=== PATIENT | male | born 1945 | race Caucasian/White ===

== ENCOUNTER 2016-11-20 11:31 | Emergency (ER) | payer OTHER ==
[2016-11-20 11:41] VITALS: TEMP 97.7
--- NOTE | 2016-11-20 12:31 | EDPHY ---
H & P Stated Complaint: hx diverticulitis/lower abd pain Time Seen by Provider: 11/20/16 12:07 HPI/ROS: CHIEF COMPLAINT: left lower quadrant abdominal pain HISTORY OF PRESENT ILLNESS: 71-year-old male presents emergency department complaining of left lower quadrant abdominal pain that started yesterday afternoon. Patient reports no nausea or vomiting, no fevers. He states he was diagnosed with diverticulitis [address] scan and has not had any problems since. This feels very similar. Patient reports he had a normal bowel movement yesterday. He reports he has been eating very little as he is worried it will cause more pain. He does feel hungry. Patient denies urinary frequency, urgency, dysuria. REVIEW OF SYSTEMS: A comprehensive 10 point review of systems is otherwise negative aside from elements mentioned in the history of present illness. Source: Patient Exam Limitations: No limitations - Personal History Current Tetanus/Diphtheria Vaccine: Yes - Medical/Surgical History Hx Asthma: No Hx Chronic Respiratory Disease: No Hx Diabetes: No Hx Cardiac Disease: No Hx Renal Disease: No Hx Cirrhosis: No Hx Alcoholism: No Hx HIV/AIDS: No Hx Splenectomy or Spleen Trauma: No Other PMH: appy/diverticulitis - Social History Smoking Status: Never smoked - Physical Exam Exam: Physical Exam Gen: Alert and Oriented, NAD HEENT: PERRL, moist mucous membranes NECK: no meningismus CV: regular rate and regular rhythm PULM: CTAB, no wheezes ABDOMEN: Soft, left lower quadrant tenderness to palpation with guarding, mild periumbilical tenderness, no right lower quadrant tenderness, no right upper quadrant tenderness. BACK: No CVA tenderness NEURO: Neurologically grossly intact EXTREMITIES: normal appearing SKIN: no rash or break in skin on exposed skin PSYCH: answers questions appropriately. Constitutional: Initial Vital Signs Temperature (C) 36.5 C 11/20/16 11:38 Heart Rate 62 11/20/16 11:38 Respiratory Rate 16 11/20/16 11:38 Blood Pressure 129/84 H 11/20/16 11:38 O2 Sat (%) 95 11/20/16 11:38 O2 Delivery Mode Room Air Allergies/Adverse Reactions: Inownor-Ixd-Upo Reductase Inhibitor Allergy (Verified 11/20/16 11:37) SODIUM BLOCKERS Allergy (Uncoded 07/10/13 23:34) Home Medications: Medication Instructions Recorded Clonazepam 0 mg PO 07/10/13 Diclofenac Sodium 0 mg PO 07/10/13 Lisinopril [Zestril 20 mg (RX)] 0 mg PO DAILY 07/10/13 Niacin ER [Niaspan 1000 mg (RX)] 1,500 mg PO HS 07/10/13 Metronidazole 500 mg PO TID 10 Days 11/20/16 levOFLOXACIN [levAQUIN (*)] 750 mg PO DAILY #10 tab 11/20/16 traMADol 11/20/16 Medical Decision Making - Diagnostics Imaging: CT abdomen pelvis Impression: 1. Acute distal descending colon diverticulitis, with a mild associated localized jejunal ileus. There is no evidence of a colonic abscess despite rather extensive inflammatory changes of the adjacent mesenteric fat. 2. Possible cholelithiasis versus gallbladder sludge; sonography would be more definitive. 3. Mild cardiomegaly with coronary artery atherosclerotic calcifications. 4. Moderate hiatal hernia. 5. Moderate prostatomegaly. Results were discussed with Bunny White, Nurse Practitioner. ED Course/Re-evaluation: IV established, CBC, chemistry panel, urine dip ordered along with CT abdomen pelvis with IV contrast. CBC shows a mildly elevated white blood cell count at 11,000 with a left shift, chemistry panel is normal, urinalysis is normal. CT shows a descending colon diverticulitis. Patient would like to be discharged home, I am comfortable with this plan, he is afebrile, has no nausea or vomiting, no evidence of abscess or perforation on CT. Patient will be discharged with a prescription for Levaquin and Flagyl, this is what was used to treat his diverticulitis in 2012. Patient agrees to follow up at the [facility] this week. He is given strict return precautions for nausea, vomiting, fevers, worsening symptoms. He does not want a prescription for any pain medication. I have recommended clear liquids for the next 2-3 days and advancing his diet slowly as tolerated. Patient is comfortable with this plan. I reviewed this with Dr. Grimes, my supervising physician and she agrees with the plan. Differential Diagnosis: Diagnosis considered but not limited to diverticulitis, small-bowel obstruction , perforation, abscess - Data Points Laboratory Results: Laboratory Results 11/20/16 12:20 11/20/16 12:20 11/20/16 12:20 WBC 11.84 H 10^3/uL (3.80-9.50) RBC 5.19 10^6/uL (4.40-6.38) Hgb 17.1 g/dL (13.7-17.5) Hct 48.7 % (40.0-51.0) MCV 93.8 fL (81.5-99.8) MCH 32.9 pg (27.9-34.1) MCHC 35.1 g/dL (32.4-36.7) RDW 12.7 % (11.5-15.2) Plt Count 201 10^3/uL (150-400) MPV 10.5 fL (8.7-11.7) Neut % (Auto) 76.8 H % (39.3-74.2) Lymph % (Auto) 11.1 L % (15.0-45.0) Edmunds % (Auto) 9.8 % (4.5-13.0) Eos % (Auto) 1.6 % (0.6-7.6) Baso % (Auto) 0.3 % (0.3-1.7) Nucleat RBC Rel Count 0.0 % (0.0-0.2) Absolute Neuts (auto) 9.09 H 10^3/uL (1.70-6.50) Absolute Lymphs (auto) 1.31 10^3/uL (1.00-3.00) Absolute Monos (auto) 1.16 H 10^3/uL (0.30-0.80) Absolute Eos (auto) 0.19 10^3/uL (0.03-0.40) Absolute Basos (auto) 0.04 10^3/uL (0.02-0.10) Absolute Nucleated RBC 0.00 10^3/uL (0-0.01) Immature Gran % 0.4 % (0.0-1.1) Immature Gran # 0.05 10^3/uL (0.00-0.10) Sodium 144 mEq/L (134-144) Potassium 4.2 mEq/L (3.5-5.2) Chloride 103 mEq/L (97-110) Carbon Dioxide 28 mEq/l (22-31) Anion Gap 13 mEq/L (8-16) BUN 19 mg/dL (7-23) Creatinine 0.9 mg/dL (0.7-1.3) Estimated GFR > 60 Glucose 85 mg/dL (70-100) Calcium 9.6 mg/dL (8.5-10.4) Departure - Departure Disposition: Home, Routine, Self-Care Clinical Impression: Diverticulitis Qualifiers: Qualifier Code: (K57.32) Diverticulitis of large intestine without perforation or abscess without bleeding Condition: Good Instructions: Diverticulitis (ED), Diverticulitis Diet (ED) Additional Instructions: Take your antibiotics as prescribed. Follow up with the next week at the [facility] for re-evaluation, return the emergency department for worsening symptoms, fevers, vomiting, pain that is not improving. Clear liquid diet for the next 2-3 days. Tylenol and/or ibuprofen [id number] as needed for pain. [facility] - As per Instructions Prescriptions: Metronidazole 500 mg PO TID 10 Days levOFLOXACIN [levAQUIN (*)] 750 mg PO DAILY #10 tab
[2016-11-20 12:34] LABS: % IMMATURE GRANULYOCYTES 0.4 % (0.0-1.1); ABSOLUTE IMMATURE GRANULOCYTES 0.05 10^3/uL (0.00-0.10); ADD DIFF? NO; ADD MORPH? NO; ADD SCAN? NO; ATYPICAL LYMPHOCYTE FLAG 0 (0-99); FRAGMENT RBC FLAG 0 (0-99); HEMATOCRIT 48.7 % (40.0-51.0); HEMOGLOBIN 17.1 g/dL (13.7-17.5); LEFT SHIFT FLG 0 (0-99); LIPEMIA HEMOLYSIS FLAG 90 (0-99); MEAN CELL HEMOGLOBIN 32.9 pg (27.9-34.1); MEAN CELL HEMOGLOBIN CONCENTR. 35.1 g/dL (32.4-36.7); MEAN CELL VOLUME 93.8 fL (81.5-99.8); MEAN PLATELET VOLUME 10.5 fL (8.7-11.7); PLATELET CLUMPS FLAG 0 (0-99); PLATELET COUNT 201 10^3/uL (150-400); RED BLOOD CELL COUNT 5.19 10^6/uL (4.40-6.38); RED CELL DISTRIBUTION WIDTH 12.7 % (11.5-15.2)
[2016-11-20 12:57] LABS: ANION GAP 13 mEq/L (8-16); CALCIUM 9.6 mg/dL (8.5-10.4); CARBON DIOXIDE 28 mEq/l (22-31); CHLORIDE 103 mEq/L (97-110); CREATININE 0.9 mg/dL (0.7-1.3); GLOMERULAR FILTRATION RATE > 60; GLUCOSE 85 mg/dL (70-100); POTASSIUM 4.2 mEq/L (3.5-5.2); SODIUM 144 mEq/L (134-144)
[2016-11-20] MEDS ORDERED: IOPAMIDOL (ISOVUE-300) 100 ML BTL IV ONE (12:57)
--- NOTE | 2016-11-20 13:51 | CT ---
Contrast Enhanced CT Scan of the Abdomen and Pelvis Clinical History: 71-year-old male presenting to the ED complaining of left lower quadrant pain for 24 hours. Rule out diverticulitis. The patient's surgical history is notable for a prior appendectomy . Technique: Following oral contrast, and the uncomplicated intravenous administration of 100 mL of Iso antelmo-300, a multidetector helical CT scan was obtained from the lung bases inferiorly through the prox imal femora, with images reformatted at 5.00 and 1.50 mm increments, and reviewed at a variety of win vanesa and level settings. Parasagittal and paracoronal reconstructed images are reviewed on the worksta tion. The DFOV is 40.0 cm. Dose reduction techniques were utilized. Comparison Study: Contrast-enhanced CT scan of the abdomen and pelvis, dated July 11, 2013. Findings: Contrast-Enhanced CT Scan of the Abdomen: There is some mild perihilar bronchial wall thickening at t he lung bases where there are also some minor posterior dependent changes. There is no pleural effusi on. The visualized cardiac chambers and pericardium are unremarkable. There is atherosclerotic calcif ication of the RCA and PTCA vessels. Again, there is a moderate-sized hiatal hernia present. The live r, spleen, bile ducts, pancreas, adrenal glands, and the kidneys are normal in appearance. There is s ome volume averaging of fat near the falciform ligament on series 4, image 51. There is possible slud ge versus tiny stones associated with the gallbladder fundus and neck. This could be more definitivel y assessed with ultrasound, if clinically directed. There is no pericholecystic fluid or gallbladder wall thickening. There are some small periportal and precaval lymph nodes seen on series 4 images 65 through 78, however these are reassuringly unchanged from 2013. The aorta tapers normally, and the IV C is normal in caliber. There is no ascites or free air. There is moderate centripetal obesity. There is a localized ileus with fluid-filled loops of jejunum adjacent to inflammation involving the dista l descending colon (within the setting of several diverticula, consistent with acute diverticulitis). These features are identified on series 4 images 139-197. There is no abscess. Contrast-Enhanced CT Scan of the Pelvis: Numerous sigmoid colon diverticula are observed. The urinary bladder is moderately distended. The prostate gland is moderately enlarged, measuring 5.9 x 4.4 x 4. 7 cm There are no masses, free fluid, or free air. Bilateral fat-containing inguinal hernias are seen . Skeletal System: There is advanced degenerative disk disease at L1-L2, L4-L5, and L5-S1. There is a d extrorotatory lumbar scoliosis. Impression: 1. Acute distal descending colon diverticulitis, with a mild associated localized jejunal ileus. Ther e is no evidence of a colonic abscess despite rather extensive inflammatory changes of the adjacent m esenteric fat. 2. Possible cholelithiasis versus gallbladder sludge; sonography would be more definitive. 3. Mild cardiomegaly with coronary artery atherosclerotic calcifications. 4. Moderate hiatal hernia. 5. Moderate prostatomegaly. Results were discussed with Bunny White, Nurse Practitioner. A test result has been communicated to a licensed care provider and documented in the [employer] Critical Result system on 11/20/2016 13:48, Message ID [id number].
[2016-11-20 14:12] VITALS: PULSE 66; O2SAT 93
[2016-11-20 14:59] VITALS: BP 150/92; RESP 16
== END 2016-11-20 14:59 | disposition home or self-care (01) ==
DX: K57.32 Diverticulitis of large intestine without perforation or abscess without bleeding (principal)
CPT/HCPCS: 74177; 99284; Q9967

== ENCOUNTER 2017-12-07 17:49 | Emergency (ER) | payer OTHER ==
[2017-12-07 18:00] VITALS: TEMP 98.4
[2017-12-07] MEDS ORDERED: NS 1,000 ML IV ONE (18:32)
[2017-12-07] MEDS ORDERED: metroNIDAZOLE 500 MG TAB PO ONE (18:33)
[2017-12-07] MEDS ORDERED: CIPROFLOXACIN 500 MG TAB PO ONE (18:33)
--- NOTE | 2017-12-07 18:36 | EDPHY ---
H & P Stated Complaint: l lower quad abd pain/hx of diverticulitis Time Seen by Provider: 12/07/17 18:24 HPI/ROS: CHIEF COMPLAINT: Diverticulitis flare HISTORY OF PRESENT ILLNESS: The patient is a 72-year-old who comes to the emergency department complaining of left lower quadrant pain that began yesterday after he ate crispy choe and blueberries with seeds. He states that this is exactly reminiscent of previous episodes of diverticulitis. He has not had a fever. No nausea vomiting or diarrhea. He was seen here last for the same and treated successfully as an outpatient with Cipro and Flagyl. He was told by the [facility] not to get further CT scans if possible. No urinary symptoms. No bloody stool. No chest pain or shortness of breath. REVIEW OF SYSTEMS: Constitutional: denies: chills, fever, recent illness, recent injury EENTM: denies: blurred vision, double vision, nose congestion Respiratory: denies: cough, shortness of breath Cardiac: denies: chest pain, irregular heart rate, lightheadedness, palpitations Gastrointestinal/Abdominal: See HPI denies: diarrhea, nausea, vomiting, blood streaked stools Genitourinary: denies: dysuria, frequency, hematuria, pain Musculoskeletal: denies: joint pain, muscle pain Skin: denies: lesions, rash, jaundice, bruising Neurological: denies: headache, numbness, paresthesia, tingling, dizziness, weakness Hematologic/Lymphatic: denies: blood clots, easy bleeding, easy bruising Immunologic/allergic: denies: HIV/AIDS, transplant EXAM: GENERAL: Well-appearing, well-nourished and in no acute distress. HEAD: Atraumatic, normocephalic. EYES: Pupils equal round and reactive to light, extraocular movements intact, sclera anicteric, conjunctiva are normal. ENT: TMs normal, nares patent, oropharynx clear without exudates. Moist mucous membranes. NECK: Normal range of motion, supple without lymphadenopathy or JVD. LUNGS: Breath sounds clear to auscultation bilaterally and equal. No wheezes rales or rhonchi. HEART: Regular rate and rhythm without murmurs, rubs or gallops. ABDOMEN: Left lower quadrant tenderness , normoactive bowel sounds. No guarding, no rebound. No masses appreciated. BACK: No CVA tenderness, no spinal tenderness, step-offs or deformities EXTREMITIES: Normal range of motion, no pitting or edema. No clubbing or cyanosis. NEUROLOGICAL: Cranial nerves II through XII grossly intact. Normal speech, normal gait. 5/5 strength, normal movement in all extremities, normal sensation PSYCH: Normal mood, normal affect. SKIN: Warm, dry, normal turgor, no visible rashes or lesions. Source: Patient Exam Limitations: No limitations - Personal History Current Tetanus/Diphtheria Vaccine: Yes - Medical/Surgical History Hx Asthma: No Hx Chronic Respiratory Disease: No Hx Diabetes: No Hx Cardiac Disease: No Hx Renal Disease: No Hx Cirrhosis: No Hx Alcoholism: No Hx HIV/AIDS: No Hx Splenectomy or Spleen Trauma: No Other PMH: appy/diverticulitis, incisional hernia, trigeminal neuralgia - Social History Smoking Status: Never smoked Alcohol Use: Sober Drug Use: None Constitutional: Initial Vital Signs Temperature (C) 36.9 C 12/07/17 17:57 Heart Rate 68 12/07/17 17:57 Respiratory Rate 17 12/07/17 17:57 Blood Pressure 157/90 H 12/07/17 17:57 O2 Sat (%) 94 12/07/17 17:57 O2 Delivery Mode Room Air Allergies/Adverse Reactions: Vfkrsvb-Kqy-Iqv Reductase Inhibitor Allergy (Verified 12/07/17 17:56) SODIUM BLOCKERS Allergy (Uncoded 07/10/13 23:34) Home Medications: Medication Instructions Recorded Clonazepam 0 mg PO 07/10/13 Lisinopril [Zestril 20 mg (RX)] 0 mg PO DAILY 07/10/13 traMADol 11/20/16 Ciprofloxacin [Cipro] 500 mg PO BID #14 tab 12/07/17 metroNIDAZOLE [Flagyl] 500 mg PO BID #20 tab 12/07/17 Medical Decision Making ED Course/Re-evaluation: 7:40 p.m. the patient's white blood cell count is slightly elevated. His abdominal exam remains minimally tender. He has done well with oral antibiotics and is eager to go home. He continues to refuse imaging. I feel that he will likely succeed in the outpatient setting. The I gave him strict return precautions. Differential Diagnosis: Partial list of the Differential diagnosis considered include but were not limited to; diverticulitis, diarrhea and although unlikely based on the history and physical exam, I also considered obstruction, ischemia, aneurysm, stone. I discussed these differential diagnoses and the plan with the patient as well as the usual and expected course. The patient understands that the diagnosis is provisional and that in medicine we are not always correct and that further workup is often warranted. Usual and customary warnings were given. All of the patient's questions were answered. The patient was instructed to return to the emergency department should the symptoms at all worsen or return, otherwise to followup with the physician as we discussed. - Data Points Laboratory Results: Laboratory Results 12/07/17 19:13 12/07/17 19:13 12/07/17 12/07/17 12/07/17 19:13 19:13 19:13 WBC 11.82 10^3/uL H 10^3/uL (3.80-9.50) RBC 5.17 10^6/uL 10^6/uL (4.40-6.38) Hgb 16.9 g/dL g/dL (13.7-17.5) Hct 48.9 % % (40.0-51.0) MCV 94.6 fL fL (81.5-99.8) MCH 32.7 pg pg (27.9-34.1) MCHC 34.6 g/dL g/dL (32.4-36.7) RDW 13.3 % % (11.5-15.2) Plt Count 193 10^3/uL 10^3/uL (150-400) MPV 10.4 fL fL (8.7-11.7) Neut % (Auto) 78.2 % H % (39.3-74.2) Lymph % (Auto) 10.5 % L % (15.0-45.0) Cecil % (Auto) 9.4 % % (4.5-13.0) Eos % (Auto) 1.2 % % (0.6-7.6) Baso % (Auto) 0.4 % % (0.3-1.7) Nucleat RBC Rel Count 0.0 % % (0.0-0.2) Absolute Neuts (auto) 9.25 10^3/uL H 10^3/uL (1.70-6.50) Absolute Lymphs (auto) 1.24 10^3/uL 10^3/uL (1.00-3.00) Absolute Monos (auto) 1.11 10^3/uL H 10^3/uL (0.30-0.80) Absolute Eos (auto) 0.14 10^3/uL 10^3/uL (0.03-0.40) Absolute Basos (auto) 0.05 10^3/uL 10^3/uL (0.02-0.10) Absolute Nucleated RBC 0.00 10^3/uL 10^3/uL (0-0.01) Immature Gran % 0.3 % % (0.0-1.1) Immature Gran # 0.03 10^3/uL 10^3/uL (0.00-0.10) PT 13.3 SEC SEC (12.0-15.0) INR 0.99 (0.83-1.16) APTT 27.4 SEC SEC (23.0-38.0) Sodium 140 mEq/L mEq/L (135-145) Potassium 4.1 mEq/L mEq/L (3.5-5.2) Chloride 100 mEq/L mEq/L (97-110) Carbon Dioxide 26 mEq/l mEq/l (22-31) Anion Gap 14 mEq/L mEq/L (8-16) BUN 20 mg/dL mg/dL (7-23) Creatinine 1.0 mg/dL mg/dL (0.7-1.3) Estimated GFR > 60 Glucose 89 mg/dL mg/dL (70-100) Calcium 10.0 mg/dL mg/dL (8.5-10.4) Total Bilirubin 1.3 mg/dL mg/dL (0.1-1.4) Conjugated Bilirubin 0.2 mg/dL mg/dL (0.0-0.5) Unconjugated Bilirubin 1.1 mg/dL mg/dL (0.0-1.1) AST 29 IU/L IU/L (17-59) ALT 47 IU/L IU/L (21-72) Alkaline Phosphatase 65 IU/L IU/L (38-126) Total Protein 7.7 g/dL g/dL (6.3-8.2) Albumin 4.3 g/dL g/dL (3.5-5.0) Lipase 219 IU/L IU/L (23-300) Medications Given: Discontinued Medications Ciprofloxacin (Cipro) 500 mg PO EDNOW ONE PRN Reason: Protocol Stop: 12/07/17 18:34 Last Admin: 12/07/17 19:13 Dose: 500 mg Sodium Chloride (Ns) 1,000 mls @ 0 mls/hr IV EDNOW ONE; Wide Open PRN Reason: Protocol Stop: 12/07/17 18:33 Last Admin: 12/07/17 19:14 Dose: 1,000 mls Metronidazole (Flagyl) 500 mg PO EDNOW ONE PRN Reason: Protocol Stop: 12/07/17 18:34 Last Admin: 12/07/17 19:13 Dose: 500 mg Departure - Departure Disposition: Home, Routine, Self-Care Clinical Impression: Diverticulitis Condition: Fair Instructions: Diverticulitis (ED) Referrals: [facility] [Other] - As per Instructions ED,PHYSICIAN BABAK [Medical Doctor] - 1 day, if not improved Prescriptions: Ciprofloxacin [Cipro] 500 mg PO BID #14 tab metroNIDAZOLE [Flagyl] 500 mg PO BID #20 tab
[2017-12-07 19:23] LABS: PLATELET COUNT 193 10^3/uL (150-400)
[2017-12-07 19:33] LABS: INR 0.99 (0.83-1.16); PROTIME(PATIENT) 13.3 SEC (12.0-15.0)
[2017-12-07 20:12] VITALS: BP 151/95; PULSE 71; RESP 18; O2SAT 92
== END 2017-12-07 20:14 | disposition home or self-care (01) ==
DX: K57.92 Diverticulitis of intestine, part unspecified, without perforation or abscess without bleeding (principal); E86.9 Volume depletion, unspecified

== ENCOUNTER 2018-01-29 15:43 | Emergency (ER) | payer OTHER ==
--- NOTE | 2018-01-29 16:02 | EDPHY ---
H & P Time Seen by Provider: 01/29/18 15:52 HPI/ROS: CHIEF COMPLAINT: Coughing HISTORY OF PRESENT ILLNESS: Patient presents with cough and nasal congestion which typically happens to him during the spring season. The reason shows up today in the emergency department is he is worried that he swallowed or aspirated a rock or a glass bead. The patient says he typically hikes with a rock or a piece of glass in his mouth because he thinks it is helping him be less thirsty. 2 weeks ago he thinks he might have swallowed or aspirated 1 of them but does not know for sure. Over the last 3 or 4 days started having a cough with some clear phlegm and some nasal congestion and was unsure if it was his usual springtime allergies or if he had aspirated a rock. No change in voice. No fevers or chills. No chest pain. Not short of breath. REVIEW OF SYSTEMS: Eye: no change in vision ENT: no sore throat Cardiac: no chest pain or syncope Pulmonary: HPI Abdomen: no vomiting, diarrhea, abdominal pain Musculoskeletal: Chronic neck pain but no change Skin: no rash Neuro: no headache Constitutional: no fever : no urinary symptoms A comprehensive 10 point review of systems is otherwise negative aside from elements mentioned in the history of present illness. PAST MEDICAL HISTORY: Trigeminal neuralgia, appendectomy, hernia Social history: Primary care at the [place] General Appearance: Alert and conversant, cooperative. Eyes: No scleral icterus. ENT, Mouth: Normal mucous membranes. No angioedema Respiratory: Normal respiratory effort, breath sounds equal, lungs are clear to auscultation. No wheezing. No stridor or drooling. Cardiovascular: Regular rate and rhythm. Gastrointestinal: Abdomen is soft and non tender. Neurological: Alert, face symmetric, normal motor and sensory in extremities. Skin: No urticaria. Musculoskeletal: Normal range of motion of the neck. Psychiatric: Not agitated. Emergency Department course/MDM: Chest x-ray ordered. 1637: Chest x-ray reviewed with Victor M shows right para hiatal hernia mass possibly aneurysm or foreign body, recommend CT chest with contrast. Normal i-STAT creatinine, discussed with patient and consented. 175: CT shows no mass or foreign body per Dr. Zayra Santiago, normal. Results discussed with the patient, stable for discharge. Smoking Status: Never smoked Constitutional: Initial Vital Signs Temperature (C) 36.7 C 01/29/18 15:48 Heart Rate 72 01/29/18 15:48 Respiratory Rate 18 01/29/18 15:48 Blood Pressure 146/96 H 01/29/18 15:48 O2 Sat (%) 94 01/29/18 15:48 O2 Delivery Mode Room Air Allergies/Adverse Reactions: Dpcrdkv-Cyv-Hwu Reductase Inhibitor Allergy (Verified 01/29/18 15:47) SODIUM BLOCKERS Allergy (Uncoded 07/10/13 23:34) Home Medications: Medication Instructions Recorded Clonazepam 0 mg PO 07/10/13 Lisinopril [Zestril 20 mg (RX)] 0 mg PO DAILY 07/10/13 traMADol 11/20/16 Medical Decision Making - Diagnostics Imaging Results: Imaging Impressions Chest X-Ray 01/29/18 15:58 Impression: 1. No pneumonia 2. Small hiatal hernia 3. Possible right paraspinal mass, versus an unusual extension of the hiatal hernia. Recommend CT chest with IV contrast for further evaluation. Results discussed with Dr. Bosch at 4:[address] 01/29/18 17:02 Impression: 1. No foreign body identified. No airways trapping. 2. Hiatal hernia, pushing the esophagus towards the right, which contributes to the shadow seen on x-ray. Findings and recommendations discussed with Dr. Sohail Bosch at 1800 hour, 2017. Final report concurs with initial preliminary interpretation. - Data Points Laboratory Results: 01/29/18 16:55 POC Hgb 17.0 gm/dL gm/dL (13.7-17.5) POC Hct 50 % % (40-51) POC Sodium 142 mEq/L mEq/L (135-145) POC Potassium 4.2 mEq/L mEq/L (3.3-5.0) POC Chloride 103 mEq/L mEq/L (97-110) POC BUN 18 mg/dL mg/dL (7-23) POC Creatinine 1.0 mg/dL mg/dL (0.7-1.3) POC Glucose 92 mg/dL mg/dL (70-100) Point of Care Test Results: 01/29/18 16:55 POC Sodium 142 POC Potassium 4.2 POC Chloride 103 POC BUN 18 POC Creatinine 1.0 POC Glucose 92 Departure - Departure Disposition: Home, Routine, Self-Care Clinical Impression: Cough Condition: Good Instructions: Acute Cough (ED) Referrals: NONE *PRIMARY CARE P,. [Primary Care Provider] - As per Instructions (Dr. Manzano, your doctor at the [place] )
[2018-01-29] MEDS ORDERED: IOPAMIDOL (ISOVUE-300) 100 ML BTL ONE (17:12)
[2018-01-29 18:16] VITALS: BP 144/93
== END 2018-01-29 18:16 | disposition home or self-care (01) ==
DX: R05 Cough (principal)
CPT/HCPCS: 71046; 71260; 99285; Q9967; 82947-QW

== ENCOUNTER 2018-02-01 14:27 | Emergency (ER) | payer OTHER ==
--- NOTE | 2018-02-01 14:41 | CPEKG ---
Heart Rate: 81 RR Interval: 741 P-R Interval: 148 QRSD Interval: 98 QT Interval: 368 QTC Interval: 428 P [place]: 21 QRS [place]: -11 T Wave [place]: 14 EKG Severity - NORMAL ECG - EKG Impression: SINUS RHYTHM Electronically Signed By: Blayne Rai 01-Feb-2018 15:27:54
[2018-02-01 15:01] LABS: PLATELET COUNT 160 10^3/uL (150-400)
--- NOTE | 2018-02-01 15:13 | EDPHY ---
H & P Stated Complaint: COUGH W/ CP SINCE THIS AM Time Seen by Provider: 02/01/18 14:59 HPI/ROS: CHIEF COMPLAINT: Chest pain HISTORY OF PRESENT ILLNESS: The patient is a 72-year-old man who has had a cough for the last 3 days since he went hiking and thought he may have swallowed a marble. He was seen here in x-rays were taken and no foreign body seen. His cough has persisted and then today after taking showered 11:00 a.m. He felt suddenly weak and had to sit down for about an hour and half before he could stand up. At some point during that time he also had chest pain that he describes as hard. He also states that he is traveling pain throughout his body that he thinks is from trigeminal neuralgia in various regions of his body. He states that he has a bad spine and follows with Neurology. It usually involves his face but sometimes even his groin and side and chest. He thinks that his chest pain today was likely part of that neuralgia. He thinks that his trigeminal neuralgia has been worsened over the last week because of the high pollen count. He had a subjective fever yesterday but not today. No GI symptoms. No bowel or bladder abnormalities. No difficulty walking here in the department. REVIEW OF SYSTEMS: Constitutional: denies: chills, fever, recent illness, recent injury EENTM: denies: blurred vision, double vision, nose congestion Respiratory: denies: cough, shortness of breath Cardiac: See HPI denies: irregular heart rate, lightheadedness, palpitations Gastrointestinal/Abdominal: denies: abdominal pain, diarrhea, nausea, vomiting, blood streaked stools Genitourinary: denies: dysuria, frequency, hematuria, pain Musculoskeletal: See HPI Skin: denies: lesions, rash, jaundice, bruising Neurological: See HPI denies: headache, numbness, paresthesia, tingling, dizziness Hematologic/Lymphatic: denies: blood clots, easy bleeding, easy bruising Immunologic/allergic: denies: HIV/AIDS, transplant EXAM: GENERAL: Well-appearing, well-nourished and in no acute distress. HEAD: Atraumatic, normocephalic. EYES: Pupils equal round and reactive to light, extraocular movements intact, sclera anicteric, conjunctiva are normal. ENT: TMs normal, nares patent, oropharynx clear without exudates. Moist mucous membranes. NECK: Normal range of motion, supple without lymphadenopathy or JVD. LUNGS: Breath sounds clear to auscultation bilaterally and equal. No wheezes rales or rhonchi. HEART: Regular rate and rhythm without murmurs, rubs or gallops. ABDOMEN: Soft, nontender, normoactive bowel sounds. No guarding, no rebound. No masses appreciated. BACK: No CVA tenderness, no spinal tenderness, step-offs or deformities EXTREMITIES: Normal range of motion, no pitting or edema. No clubbing or cyanosis. NEUROLOGICAL: Cranial nerves II through XII grossly intact. Normal speech, normal gait. 5/5 strength, normal movement in all extremities, normal sensation PSYCH: Normal mood, normal affect. SKIN: Warm, dry, normal turgor, no visible rashes or lesions. Source: Patient Exam Limitations: No limitations - Personal History Current Tetanus Diphtheria and Acellular Pertussis (TDAP): Unsure - Medical/Surgical History Hx Asthma: No Hx Chronic Respiratory Disease: No Hx Diabetes: No Hx Cardiac Disease: No Hx Renal Disease: No Hx Cirrhosis: No Hx Alcoholism: No Hx HIV/AIDS: No Hx Splenectomy or Spleen Trauma: No Other PMH: appy/diverticulitis, incisional hernia, trigeminal neuralgia - Family History Significant Family History: No pertinent family hx - Social History Smoking Status: Never smoked Alcohol Use: Sober Drug Use: None Constitutional: Initial Vital Signs Temperature (C) 36.4 C 02/01/18 14:31 Heart Rate 81 02/01/18 14:31 Respiratory Rate 16 02/01/18 14:31 Blood Pressure 108/59 L 02/01/18 14:31 O2 Sat (%) 91 L 02/01/18 14:31 O2 Delivery Mode Room Air Allergies/Adverse Reactions: Iwlrrhr-Krk-Zrv Reductase Inhibitor Allergy (Verified 02/01/18 14:29) SODIUM BLOCKERS Allergy (Uncoded 02/01/18 14:29) Home Medications: Medication Instructions Recorded Clonazepam 0 mg PO 07/10/13 Lisinopril [Zestril 20 mg (RX)] 0 mg PO DAILY 07/10/13 traMADol 11/20/16 Temazepam 02/01/18 Medical Decision Making - Diagnostics EKG Interpretation: An EKG obtained and was read and documented in trace view. Please see trace view for full reading and report. Sinus rhythm, no acute ischemic changes Imaging Results: Imaging Impressions Chest X-Ray 02/01/18 15:10 Impression: 1. Moderate hiatal hernia. 2. No active cardiopulmonary disease seen. Imaging: Discussed imaging studies w/ flower shop manager Radiologist ED Course/Re-evaluation: 4:30 p.m. we discussed the test results. The patient is reassured. He is currently asymptomatic. I offered admission for further cardiac rule out but he declines. It is reassuring that is been about 6 hr since his symptoms began in his troponin is negative. We also discussed his elevated lipase. He does drink but does not think is now colic. He is not having any epigastric pain. He has not been vomiting. I offered to perform biliary studies but he declines. He is eager to go home. We discussed indications for returning. Differential Diagnosis: Partial list of the Differential diagnosis considered include but were not limited to; acute coronary disease, bronchitis, pleurisy, foreign body, cholelithiasis, pancreatitis and although unlikely based on the history and physical exam, I also considered dissection, aneurysm, PE, pneumonia. I discussed these differential diagnoses and the plan with the patient as well as the usual and expected course. The patient understands that the diagnosis is provisional and that in medicine we are not always correct and that further workup is often warranted. Usual and customary warnings were given. All of the patient's questions were answered. The patient was instructed to return to the emergency department should the symptoms at all worsen or return, otherwise to followup with the physician as we discussed. - Data Points Laboratory Results: Laboratory Results 02/01/18 14:40 02/01/18 14:40 02/01/18 02/01/18 02/01/18 14:40 14:40 14:40 WBC RBC Hgb Hct MCV MCH MCHC RDW Plt Count MPV Neut % (Auto) Lymph % (Auto) [place] % (Auto) Eos % (Auto) Baso % (Auto) Nucleat RBC Rel Count Absolute Neuts (auto) Absolute Lymphs (auto) Absolute Monos (auto) Absolute Eos (auto) Absolute Basos (auto) Absolute Nucleated RBC Immature Gran % Immature Gran # D-Dimer 0.35 ug/mLFEU ug/mLFEU (0.00-0.50) Sodium 140 mEq/L mEq/L (135-145) Potassium 4.3 mEq/L mEq/L (3.5-5.2) Chloride 101 mEq/L mEq/L (97-110) Carbon Dioxide 24 mEq/l mEq/l (22-31) Anion Gap 15 mEq/L mEq/L (8-16) BUN 21 mg/dL mg/dL (7-23) Creatinine 1.3 mg/dL mg/dL (0.7-1.3) Estimated GFR 54 Glucose 125 mg/dL H mg/dL (70-100) Calcium 9.8 mg/dL mg/dL (8.5-10.4) Total Bilirubin 1.0 mg/dL mg/dL (0.1-1.4) Conjugated Bilirubin 0.3 mg/dL mg/dL (0.0-0.5) Unconjugated Bilirubin 0.7 mg/dL mg/dL (0.0-1.1) AST 43 IU/L IU/L (17-59) ALT 56 IU/L IU/L (21-72) Alkaline Phosphatase 53 IU/L IU/L (38-126) Troponin I < 0.012 ng/mL ng/mL (0.000-0.034) Total Protein 8.1 g/dL g/dL (6.3-8.2) Albumin 4.5 g/dL g/dL (3.5-5.0) Lipase 468 IU/L H IU/L (23-300) 02/01/18 14:40 WBC 5.46 10^3/uL 10^3/uL (3.80-9.50) RBC 5.48 10^6/uL 10^6/uL (4.40-6.38) Hgb 17.7 g/dL H g/dL (13.7-17.5) Hct 50.4 % % (40.0-51.0) MCV 92.0 fL fL (81.5-99.8) MCH 32.3 pg pg (27.9-34.1) MCHC 35.1 g/dL g/dL (32.4-36.7) RDW 13.8 % % (11.5-15.2) Plt Count 160 10^3/uL 10^3/uL (150-400) MPV 11.2 fL fL (8.7-11.7) Neut % (Auto) 75.9 % H % (39.3-74.2) Lymph % (Auto) 8.6 % L % (15.0-45.0) [place] % (Auto) 14.7 % H % (4.5-13.0) Eos % (Auto) 0.0 % L % (0.6-7.6) Baso % (Auto) 0.4 % % (0.3-1.7) Nucleat RBC Rel Count 0.0 % % (0.0-0.2) Absolute Neuts (auto) 4.15 10^3/uL 10^3/uL (1.70-6.50) Absolute Lymphs (auto) 0.47 10^3/uL L 10^3/uL (1.00-3.00) Absolute Monos (auto) 0.80 10^3/uL 10^3/uL (0.30-0.80) Absolute Eos (auto) 0.00 10^3/uL L 10^3/uL (0.03-0.40) Absolute Basos (auto) 0.02 10^3/uL 10^3/uL (0.02-0.10) Absolute Nucleated RBC 0.00 10^3/uL 10^3/uL (0-0.01) Immature Gran % 0.4 % % (0.0-1.1) Immature Gran # 0.02 10^3/uL 10^3/uL (0.00-0.10) D-Dimer Sodium Potassium Chloride Carbon Dioxide Anion Gap BUN Creatinine Estimated GFR Glucose Calcium Total Bilirubin Conjugated Bilirubin Unconjugated Bilirubin AST ALT Alkaline Phosphatase Troponin I Total Protein Albumin Lipase Departure - Departure Disposition: Home, Routine, Self-Care Clinical Impression: Chest pain Qualifiers: Chest pain type: unspecified Qualified Code(s): R07.9 - Chest pain, unspecified Condition: Fair Instructions: Chest Pain (ED) Referrals: NONE *PRIMARY CARE P,. [Primary Care Provider] - As per Instructions Shira Langston MD [Medical Doctor] - As per Instructions
[2018-02-01 16:49] VITALS: BP 115/78
== END 2018-02-01 16:30 | disposition home or self-care (01) ==
DX: R07.9 Chest pain, unspecified (principal)

== ENCOUNTER 2018-02-03 13:08 | Emergency (ER) | payer OTHER ==
--- NOTE | 2018-02-03 13:21 | EDPHY ---
H & P Stated Complaint: coughing up blood/weakness Time Seen by Provider: 02/03/18 13:20 HPI/ROS: HPI: This is a 72-year-old male who presents with Chief Complaint: coughing up blood/weakness Location: chest Quality: Cough up blood Duration: one time prior to arrival Signs and Symptoms: no shortness of breath at rest, no shortness of breath on exertion, + Dr. cough, no chest pain, no palpitations, no lower extremity edema , no wheezing, no orthopnea, no paroxysmal nocturnal dyspnea, no fever, no injury/trauma, no hemoptysis, no carpal pedal spasms Timing: Acute, 1 episode Severity: Mild Context: Patient reports that he has had upper respiratory symptoms since last [place] He thought it was related to the pollen. He was walking out to his mailbox today and started to cough which she notes has been productive now in nature for the last 2 days. He knows that his cough and sputum worse green and blood tinged. His neighbor is a general surgeon and advised him to go to the emergency room for further evaluation. He denies any regular alcohol use but did have a Leonela yesterday. He has been taking ibuprofen 200 mg twice daily for the last 4 days for pleuritic chest pain. He reports that this is his 3rd visit to the emergency room in the last week. He denies any chest pain/lower extremity edema/shortness of breath. He is traveling on Monday to help his disable sister. No history of lung disease. Denies any fever/chills/neck stiffness. Denies history of GERD/food intolerance/abdominal pain. Modifying Factors: None Comment: ROS: see HPI Constitutional: No fever, no chills, no weight loss Eyes: No blurred vision Respiratory: No shortness of breath, + cough Cardiovascular: No chest pain, no palpitations, no lower extremity edema Gastrointestinal: No nausea, no vomiting, no diarrhea Genitourinary: No dysuria Extremities: No myalgias Neurologic: No weakness, no numbness Skin: No rashes Hematologic: No bruising, no bleeding MEDICAL/SURGICAL/SOCIAL HISTORY: Medical/Surgical history: Appendectomy, diverticulitis, incisional hernia, trigeminal neuralgia, hiatal hernia Social history: Retired. CONSTITUTIONAL: Polite and cooperative, well-appearing elderly white male, awake and alert, no obvious distress HEENT: Atraumatic and normocephalic, PERRL, EOMI. Nares patent; no rhinorrhea; no nasal mucosal edema. Tympanic membranes clear. Oropharynx clear, no exudate and moist pink mucosa. Airway patent. No lymphadenopathy. No meningismus. Cardiovascular: Normal S1/S2, regular rate, regular rhythm, without murmur rub or gallop. PULMONARY/CHEST: Symmetrical and nontender. Coarseness auscultated bilaterally. Good air movement. No accessory muscle usage. Greenish sputum that is blood tinged noted on tissue paper that patient brought into ER. ABDOMEN: Soft, nondistended, nontender, no rebound, no guarding, no peritoneal signs, no masses or organomegaly. No CVAT. EXTREMITIES: 2/2 pulses, strength 5/5, no deformities, no clubbing, no cyanosis or edema. NEUROLOGICAL: no focal neuro deficits. GCS 15. SKIN: Warm and dry, no erythema. no rash. Good capillary refill. Source: Patient Exam Limitations: No limitations - Personal History Current Tetanus/Diphtheria Vaccine: Yes - Medical/Surgical History Hx Asthma: No Hx Chronic Respiratory Disease: No Hx Diabetes: No Hx Cardiac Disease: No Hx Renal Disease: No Hx Cirrhosis: No Hx Alcoholism: No Hx HIV/AIDS: No Hx Splenectomy or Spleen Trauma: No Other PMH: appy/diverticulitis, incisional hernia, trigeminal neuralgia - Social History Smoking Status: Never smoked Constitutional: Initial Vital Signs Temperature (C) 36.5 C 02/03/18 13:13 Heart Rate 73 02/03/18 13:13 Respiratory Rate 18 02/03/18 13:13 Blood Pressure 120/89 H 02/03/18 13:13 O2 Sat (%) 93 02/03/18 13:13 O2 Delivery Mode Room Air O2 (L/minute) 2 Allergies/Adverse Reactions: [id number]-Cxh Reductase Inhibitor Allergy (Verified 02/03/18 13:12) SODIUM BLOCKERS Allergy (Uncoded 02/01/18 14:29) Home Medications: Medication Instructions Recorded Clonazepam 0 mg PO 07/10/13 Lisinopril [Zestril 20 mg (RX)] 0 mg PO DAILY 07/10/13 traMADol 11/20/16 Temazepam 02/01/18 Albuterol Sulfate [Proair Hfa] 1 - 2 puffs IH Q4 PRN #1 hfa.aer.ad 02/03/18 Azithromycin [Zithromax] 250 mg PO DAILY #6 tab 02/03/18 Benzonatate [Tessalon Pearles (RX)] 100 mg PO Q6 PRN #15 cap 02/03/18 Medical Decision Making - Diagnostics Imaging Results: Imaging Impressions Chest X-Ray 02/03/18 13:25 Impression: No pneumonia. ED Course/Re-evaluation: Labs, chest x-ray, nebulizer therapy, meds ordered O2 sats stable upon arrival. No hypoxia. Symptoms now all almost a week; worsening in nature; suspect bacterial etiology Given albuterol neb, prednisone 60 mg, Tessalon Perles adequate relief 1357: Labs reviewed. No signs of leukocytosis/anemia/BALJIT/elevated LFTs/ electrolyte imbalance/coagulopathy. Chest x-ray my read shows no effusion, no opacity, no pneumothorax Will treat as bacterial bronchitis. 1413: Notified by nursing that patient is O2 sats are 90-92% on room air while he was sleeping. Into re-evaluate patient reports that he feels better than he ever has. Offer patient admission and adamantly declined. Reports he feels well enough to be treated outpatient and that he has a doctor and friends in the medical field " to keep an eye on him." Asked if he could not Hail CBD oral or if he needed to take the pill form. Advised that he needed to take the pill form. This patient was seen under the supervision of my secondary supervising physician. I evaluated care for this patient independently. Differential Diagnosis: Differential diagnosis includes but is not limited to bronchitis, pneumonia, sepsis, upper GI bleed. - Data Points Laboratory Results: Laboratory Results 02/03/18 13:36 02/03/18 13:36 02/03/18 02/03/18 02/03/18 13:36 13:36 13:36 WBC 6.23 10^3/uL 10^3/uL (3.80-9.50) RBC 5.37 10^6/uL 10^6/uL (4.40-6.38) Hgb 17.2 g/dL g/dL (13.7-17.5) Hct 49.4 % % (40.0-51.0) MCV 92.0 fL fL (81.5-99.8) MCH 32.0 pg pg (27.9-34.1) MCHC 34.8 g/dL g/dL (32.4-36.7) RDW 13.9 % % (11.5-15.2) Plt Count 154 10^3/uL 10^3/uL (150-400) MPV 10.7 fL fL (8.7-11.7) Neut % (Auto) 70.4 % % (39.3-74.2) Lymph % (Auto) 15.4 % % (15.0-45.0) [place] % (Auto) 13.3 % H % (4.5-13.0) Eos % (Auto) 0.3 % L % (0.6-7.6) Baso % (Auto) 0.3 % % (0.3-1.7) Nucleat RBC Rel Count 0.0 % % (0.0-0.2) Absolute Neuts (auto) 4.38 10^3/uL 10^3/uL (1.70-6.50) Absolute Lymphs (auto) 0.96 10^3/uL L 10^3/uL (1.00-3.00) Absolute Monos (auto) 0.83 10^3/uL H 10^3/uL (0.30-0.80) Absolute Eos (auto) 0.02 10^3/uL L 10^3/uL (0.03-0.40) Absolute Basos (auto) 0.02 10^3/uL 10^3/uL (0.02-0.10) Absolute Nucleated RBC 0.00 10^3/uL 10^3/uL (0-0.01) Immature Gran % 0.3 % % (0.0-1.1) Immature Gran # 0.02 10^3/uL 10^3/uL (0.00-0.10) PT 12.6 SEC SEC (12.0-15.0) INR 0.92 (0.83-1.16) APTT 28.1 SEC SEC (23.0-38.0) Sodium 140 mEq/L mEq/L (135-145) Potassium 4.4 mEq/L mEq/L (3.5-5.2) Chloride 99 mEq/L mEq/L (97-110) Carbon Dioxide 27 mEq/l mEq/l (22-31) Anion Gap 14 mEq/L mEq/L (8-16) BUN 31 mg/dL H mg/dL (7-23) Creatinine 1.3 mg/dL mg/dL (0.7-1.3) Estimated GFR 54 Glucose 99 mg/dL mg/dL (70-100) Calcium 9.1 mg/dL mg/dL (8.5-10.4) Total Bilirubin 1.3 mg/dL mg/dL (0.1-1.4) AST 42 IU/L IU/L (17-59) ALT 58 IU/L IU/L (21-72) Alkaline Phosphatase 54 IU/L IU/L (38-126) Total Protein 7.5 g/dL g/dL (6.3-8.2) Albumin 4.2 g/dL g/dL (3.5-5.0) Medications Given: Discontinued Medications Albuterol (Proventil Neb) 3 ml IH EDNOW ONE Stop: 02/03/18 13:27 Last Admin: 02/03/18 13:32 Dose: 3 ml Benzonatate (Tessalon Pearles) 200 mg PO EDNOW ONE Stop: 02/03/18 13:27 Last Admin: 02/03/18 13:32 Dose: 200 mg Prednisone (Prednisone) 60 mg PO EDNOW ONE Stop: 02/03/18 13:27 Last Admin: 02/03/18 13:32 Dose: 60 mg Departure - Departure Disposition: Home, Routine, Self-Care Clinical Impression: Acute bacterial bronchitis Condition: Good Instructions: Acute Bronchitis (ED) Additional Instructions: Please stop using NSAIDs that include ibuprofen, Motrin, Aleve, Advil x2 weeks. Take Azithromycin as directed. Use Tessalon Perles every 6 hr as needed for cough. Use albuterol inhaler every 4 hr as needed for shortness of breath, wheezing. Consume a minimum of 8-10 glasses of water or electrolyte fluid replacement drinks to loosen mucous. Use [id number] throat spray or cough drops as needed for sore throat. Refrain for inhaling tobacco, CBD oil x 1 week. Return to the ER immediately if you experience fevers/chills, shortness of breath, abdominal pain, inability to tolerate oral intake, or any other symptoms that concern you. Referrals: NATALIO CRAIN MD [Other] - As per Instructions Prescriptions: Albuterol Sulfate [Proair Hfa] 1 - 2 puffs IH Q4 PRN #1 hfa.aer.ad PRN Reason: Short Of Breath/Dyspnea Azithromycin [Zithromax] 250 mg PO DAILY #6 tab Benzonatate [Tessalon Pearles (RX)] 100 mg PO Q6 PRN #15 cap PRN Reason: Cough, Moderate
[2018-02-03] MEDS ORDERED: ALBUTEROL 3 ML DEYVIAL IH ONE (13:26)
[2018-02-03] MEDS ORDERED: BENZONATATE 100 MG CAP PO ONE (13:26)
[2018-02-03] MEDS ORDERED: predniSONE 20 MG TAB PO ONE (13:26)
[2018-02-03 13:42] LABS: PLATELET COUNT 154 10^3/uL (150-400)
[2018-02-03 13:52] LABS: INR 0.92 (0.83-1.16); PROTIME(PATIENT) 12.6 SEC (12.0-15.0)
[2018-02-03 14:29] VITALS: BP 121/79
== END 2018-02-03 14:30 | disposition home or self-care (01) ==
DX: J20.8 Acute bronchitis due to other specified organisms (principal); B96.89 Other specified bacterial agents as the cause of diseases classified elsewhere
CPT/HCPCS: 71046; 99284; J7512; J7613